=== PATIENT | female | born 1980 | race Caucasian/White ===

== ENCOUNTER 2019-07-03 14:54 | Outpatient (CLI) | payer OTHER ==
[~2019-07-03] VITALS: Ht 165.1 cm; Wt 104.1 kg
[~2019-07-03 14:54] MED LIST: FERR256T PO; FOLI-49 PO; PREN-6 PO
[2019-07-03 15:16] VITALS: Ht 165.1 cm; Wt 104.1 kg
== END 2019-07-03 18:46 | disposition home or self-care (01) ==
LOC: OBT 14:54 → L-D 14:55 → OBT 18:46
PROVIDERS: ATTEND Obstetrics & Gynecology
DX: O24.419 Gestational diabetes mellitus in pregnancy, unspecified control (principal); Z3A.32 32 weeks gestation of pregnancy
CPT/HCPCS: 76817; 76818; 82731; Z7500; G0463

== ENCOUNTER 2019-07-06 19:55 | Outpatient (CLI) | payer OTHER ==
[~2019-07-06] VITALS: Ht 160 cm; Wt 65.9 kg
[2019-07-06 20:18] VITALS: BP 102/55; PULSE 95; RESP 18
[2019-07-06 20:22] VITALS: Ht 160 cm; Wt 65.9 kg
== END 2019-07-06 22:19 | disposition home or self-care (01) ==
LOC: OBT 19:55 → L-D 19:56 → OBT 22:19
PROVIDERS: ATTEND Obstetrics & Gynecology
DX: O24.419 Gestational diabetes mellitus in pregnancy, unspecified control (principal); Z3A.32 32 weeks gestation of pregnancy
CPT/HCPCS: 76818; 80076; 83789; Z7500; G0463

== ENCOUNTER 2019-07-17 15:26 | Outpatient (CLI) | payer OTHER ==
[~2019-07-17] VITALS: Ht 160 cm; Wt 67.1 kg
[2019-07-17 18:02] VITALS: BP 94/64; PULSE 96; RESP 18
[2019-07-17 18:03] VITALS: Ht 160 cm; Wt 67.1 kg
== END 2019-07-17 19:05 | disposition home or self-care (01) ==
LOC: OBT 15:26 → L-D 15:27 → OBT 19:05
PROVIDERS: ATTEND Obstetrics & Gynecology
DX: O24.410 Gestational diabetes mellitus in pregnancy, diet controlled (principal); Z3A.33 33 weeks gestation of pregnancy
CPT/HCPCS: 76815; 76818; Z7500; G0463